=== PATIENT | male | born 1980 | race African-American/Black ===

== ENCOUNTER 2020-04-05 23:47 | Emergency (ER) | payer OTHER ==
[2020-04-05] MEDS ORDERED: KETAMINE HCL 500 MG/10 ML VIAL IM ONE (23:48)
[2020-04-05] MEDS ORDERED: HALOPERIDOL LACTATE 5 MG/ML IM ONE (23:51)
[2020-04-05] MEDS ORDERED: MIDAZOLAM HCL 2 MG/2 ML SINGLE DOSE VIAL IM ONE (23:52)
--- NOTE | 2020-04-05 23:52 | PDOC ---
Attending Attestation - Resident Resident Name: Fabián Perea - ED Attending Attestation I have performed the following: I have examined & evaluated the patient, The case was reviewed & discussed with the resident, I agree w/resident's findings & plan - HPI HPI: 04/06/20 00:42 see resident hpi - Physicial Exam PE: 04/06/20 00:42 see resident exam - Medical Decision Making 04/06/20 00:42 39-year-old male brought in accompanied by police after knocking on random people's doors yelling at staff on arrival with slurred speech, confused Patient sedated due to aggressive behavior and inability to properly evaluate Plan for CT scan of the head, labs including alcohol level and drug screen Will observe in the emergency department pending results Patient did require 10 mg of Haldol and 4 mg of Versed for sedation Pulse oximetry Discharge - Discharge Information Problems reviewed: Yes Clinical Impression/Diagnosis: Altered mental status Condition: Fair - Follow up/Referral - Patient Discharge Instructions - Post Discharge Activity
[2020-04-06 00:03] VITALS: TEMP 97; BMI 24.4
--- NOTE | 2020-04-06 00:11 | PDOC ---
History of Present Illness - General Chief Complaint: Alcohol intoxication Stated Complaint: INTOX Time Seen by Provider: 04/05/20 23:48 History Source: Patient, EMS, Law Enforcement Exam Limitations: Clinical Condition - History of Present Illness Initial Comments: 39 y/o male presenting to [facility] ER via EMS accompanied by Tristian MAURICIO screaming obscenities. PD state the pt wound found wondering the street knocking on random doors. EMS crew state he was in a state of excited delirium. Pt refused to provide any personal information. On arrival, the pt would not provide a complaint, but rather stated Ill spit on you and throw my AIDS blood on you. Pt is not known to this hospital system. Past History - Medical History Allergies/Adverse Reactions: Allergies Allergy/AdvReac Type Severity Reaction Status Date / Time No Known Allergies Allergy Verified 04/06/20 00:03 - Psycho-Social/Smoking History Smoking History: Smoker current status UNK Have you smoked in the past 12 months: No - Substance Abuse Hx (Audit-C & DAST Scrn) How often the patient has a drink containing alcohol: 2-4 times / month Number of drinks the patient has on a typical day: 3 or 4 How often the patient has six or more drinks on one occasion: Less than monthly Score: In Men: 4 or > Positive; In Women: 3 or > Positive: 4 Screen Result (Pos requires Nsg. Audit-10AR): Positive In the last yr the pt used illegal drug/Rx for NonMed reason: No Score: Yes response is considered Positive: 0 Screen Result (Positive result requires Nsg. DAST-10): Negative Review of Systems - Review of Systems Able to Perform ROS?: No Comments:: Pt refused to participate in interview. *Physical Exam - Vital Signs Last Vital Signs Temp Pulse Resp BP Pulse Ox 97 F L 95 H 95 H 136/91 98 04/05/20 23:55 04/05/20 23:55 04/05/20 23:55 04/05/20 23:55 04/05/20 23:55 - Physical Exam Vital signs and nursing notes reviewed. Constitutional- Well-developed, well-nourished adult male in no acute distress but verbally and physically combative. Head- Normocephalic. No obvious external signs of trauma. Eyes- PERRL. Sclerae white. Neck- Supple, trachea is midline. Cardiovascular / Chest- Regular rate and regular rhythm. No murmur, rubs, click s, or gallops. Peripheral pulses- radial pulses full. Respiratory- Breathing unlabored. Speaking in multi-word responses without pausing. Equal chest rise and fall. Clear to auscultation bilaterally. No stridor, no wheezing, no rhonchi. Gastrointestinal- abdomen is soft, non-tender, non-distended. Neuro- Alert but unable to assess orientation. Moving all four extremities spontaneously. No facial asymmetry. No slurred speech. Skin- Warm, dry, and intact. Psych- Affect- emotive. Speech was non-labored, non-pressured. ED Treatment Course - LABORATORY CBC & Chemistry Diagram: 04/06/20 00:20 04/06/20 00:20 - RADIOLOGY Radiology Studies Ordered: Category Date Time Status HEAD CT WITHOUT CONTRAST [CT] Stat CT Scan 04/06/20 00:09 Ordered Radiograph Interpretation: HCT: THIS IS A PRELIMINARY REPORT DATE OF SERVICE: 2020-04-06 01:02:16 IMAGES: 275 EXAM: HEAD CT WITHOUT CONTRAST HISTORY: Altered mental status COMPARISON: None. FINDINGS: Evaluation of the motion artifact, especially around the sinuses and skull base. The ventricular system is midline and nondilated. The sulcal pattern is normal for the patient's age. There is no bleed, mass, extra-axial fluid collection or mass effect. No skull f racture or skull lesion is identified. The visualized paranasal sinuses and mastoid air cells are clear. IMPRESSION: Motion limited exam without evidence of acute pathology. One or more of the following dose reduction techniques were used: automated exposure control, adjustment of the mA and/or kV according to patient size, use of iterative reconstructive technique. THIS DOCUMENT HAS BEEN ELECTRONICALLY SIGNED Chaim Olmos MD 04/06/2020 01:50 EST - Medications Given in the ED: ED Medications Discontinued Medications Generic Name Dose Route Start Last Admin Trade Name Freq PRN Reason Stop Dose Admin Haloperidol 10 mg 04/05/20 23:51 04/06/20 00:04 Haldol Injection (Fast Acting) - IM 04/05/20 23:52 10 mg ONCE ONE Administration Midazolam HCl 4 mg 04/05/20 23:52 04/06/20 00:04 Versed - IM 04/05/20 23:53 4 mg ONCE ONE Administration Medical Decision Making - Medical Decision Making 39 y/o male presenting in an apparent state of combative excited delirium. Afebrile. Vitals unremarkable for significant tachycardia, hypotension, or hypoxia. No obvious signs of trauma. Pt was administered Haldol and Versed with concern for safety of both the pt and members of staff. Pt was then placed on continuous waveform capnography and pulse oximetry. Labs revealed elevated EtOH level. No other concerning electrolyte abnormalities. Mildly elevated CK. Ordered 2L LR IVFB. HCT unremarkable for acute pathology. 06 Apr 2020 06:44 AM Pt reassessed. Found sleeping. Easily arousable. Does not recall the events of last evening. States he only drank a little bit with family. Will attempt to call family to find a ride home. 06 Apr 2020 07:04 AM Pt signed out to ED Attending Dr. Sorenson after he was verbally appraised of the pts HPI, current ED course, and plan of management. Will evaluate further for sobriety. Case discussed with ED Attending Dr. Wong. Fabián Perea M.D., PGY3 Emergency Medicine Residency Discharge - Discharge Information Problems reviewed: Yes Clinical Impression/Diagnosis: Alcohol abuse, Threatening behavior Altered mental status Qualifiers: Altered mental status type: delirium Qualified Code(s): R41.0 - Disorientation, unspecified Condition: Fair - Follow up/Referral Referrals: ON STAFF,NOT [Primary Care Provider] - - Patient Discharge Instructions Patient Printed Discharge Instructions: DI for Alcohol Abuse Additional Instructions: You were seen tonight for erratic behavior while intoxicated. Your labs did not show anything concerning aside from your alcohol level. Your head CT was normal. You need to stop drinking. I have attached a packet of information for you to read. All of todays results are included in this packet. Follow up with your primary care doctor as needed. Return to the ED for new or worsening symptoms. Print Language: UZBEK - Post Discharge Activity
[2020-04-06 00:48] LABS: BASO % 1.3 % (0-2.0); EOS % 9.3 % (0-4.5); HEMATOCRIT 39.1 % (35.4-49); HEMOGLOBIN 13.1 GM/dL (11.7-16.9); LYMPH % 44.3 % (8-40); MCH 30.9 pg (25.7-33.7); MCHC 33.4 g/dl (32.0-35.9); MEAN CELL VOLUME 92.5 fl (80-96); MEAN PLT VOLUME 7.2 fl (7.5-11.1); MONO % 7.4 % (3.8-10.2); NEUT % 37.7 % (42.8-82.8); PLATELET COUNT 266 K/MM3 (134-434); RBC 4.23 M/mm3 (4.00-5.60); RDW 14.6 % (11.9-15.9)
[2020-04-06 01:21] LABS: ALBUMIN 3.8 g/dl (3.4-5.0); ALK PHOS 70 U/L (45-117); ANION GAP 7 MMOL/L (8-16); BILIRUBIN,TOTAL 0.4 mg/dL (0.2-1); BLOOD UREA NITROGEN 8.7 mg/dL (7-18); CALCIUM 8.5 mg/dL (8.5-10.1); CHLORIDE 108 mmol/L (98-107); CO2 27 mmol/L (21-32); CREATININE 0.7 mg/dL (0.55-1.3); GLUCOSE,RANDOM 89 mg/dL (74-106); POTASSIUM 3.2 mmol/L (3.5-5.1); SGOT/AST 99 U/L (15-37); SGPT/ALT 100 U/L (13-61); SODIUM 143 mmol/L (136-145); TOT PROT 8.1 g/dl (6.4-8.2)
[2020-04-06] MEDS ORDERED: LACTATED RINGERS SOLUTION 1000 ML INFUS.BAG IV ONE (03:02)
--- NOTE | 2020-04-06 09:42 | PDOC ---
*Physical Exam - Vital Signs Last Vital Signs Temp Pulse Resp BP Pulse Ox 97 F L 94 H 18 137/85 100 04/05/20 23:55 04/06/20 06:42 04/06/20 06:42 04/06/20 06:42 04/06/20 06:42 - Physical Exam 04/06/20 09:41 pt awake, alert, communicative, follows commands, ambulates with steady gait. will d/c. ED Treatment Course - LABORATORY CBC & Chemistry Diagram: 04/06/20 00:20 04/06/20 00:20 - ADDITIONAL ORDERS Additional order review: Laboratory Results 04/06/20 04/06/20 04/06/20 00:20 00:20 00:16 Sodium 143 Potassium 3.2 L Chloride 108 H Carbon Dioxide 27 Anion Gap 7 L BUN 8.7 Creatinine 0.7 Est GFR (CKD-EPI)AfAm 136.81 Est GFR (CKD-EPI)NonAf 118.04 POC Glucometer 89 Random Glucose 89 Calcium 8.5 Total Bilirubin 0.4 AST 99 H ALT 100 H Alkaline Phosphatase 70 Creatine Kinase 856 H Creatine Kinase Index 0.6 CK-MB (CK-2) 5.9 H Troponin I < 0.02 Total Protein 8.1 Albumin 3.8 Salicylates 3.5 Acetaminophen 2.0 Alcohol, Quantitative 340.4 H 04/06/20 04/06/20 00:20 00:16 RBC 4.23 MCV 92.5 MCHC 33.4 RDW 14.6 MPV 7.2 L Neutrophils % 37.7 L Lymphocytes % 44.3 H Monocytes % 7.4 Eosinophils % 9.3 H Basophils % 1.3 POC Glucometer 89 - Medications Given in the ED: ED Medications Discontinued Medications Generic Name Dose Route Start Last Admin Trade Name Freq PRN Reason Stop Dose Admin Haloperidol 10 mg 04/05/20 23:51 04/06/20 00:04 Haldol Injection (Fast Acting) - IM 04/05/20 23:52 10 mg ONCE ONE Administration Ketamine HCl 500 mg 04/05/20 23:48 04/06/20 00:26 Ketalar - IM 04/05/20 23:49 Not Given ONCE ONE Lactated Ringer's 2,000 ml 04/06/20 03:02 04/06/20 03:20 Lactated Ringers Solution IV 04/06/20 03:03 2,000 ml ONCE ONE Administration Midazolam HCl 4 mg 04/05/20 23:52 04/06/20 00:04 Versed - IM 04/05/20 23:53 4 mg ONCE ONE Administration Discharge - Discharge Information Problems reviewed: Yes Clinical Impression/Diagnosis: Alcohol abuse, Threatening behavior Altered mental status Qualifiers: Altered mental status type: delirium Qualified Code(s): R41.0 - Disorientation, unspecified Condition: Stable Disposition: HOME - Follow up/Referral Referrals: ON STAFF,NOT [Primary Care Provider] - Ismael Rao MD [Staff Physician] - - Patient Discharge Instructions Patient Printed Discharge Instructions: DI for Alcohol Abuse Additional Instructions: You were seen tonight for erratic behavior while intoxicated. Your labs did not show anything concerning aside from your alcohol level. Your head CT was normal. You need to stop drinking. I have attached a packet of information for you to read. All of todays results are included in this packet. Follow up with your primary care doctor as needed. Return to the ED for new or worsening symptoms. Print Language: MACEDONIAN - Post Discharge Activity
[2020-04-06 09:49] VITALS: BP 156/94; PULSE 95
== END 2020-04-06 09:57 | disposition home or self-care (01) ==
LOC: JER 23:47
PROC: 3E023NZ Introduction of Analgesics, Hypnotics, Sedatives into Muscle, Percutaneous Approach (ICD-10-PCS; principal; 2020-04-05)
PROC: 3E023BZ Introduction of Anesthetic Agent into Muscle, Percutaneous Approach (ICD-10-PCS; 2020-04-05)
PROC: 3E033NZ Introduction of Analgesics, Hypnotics, Sedatives into Peripheral Vein, Percutaneous Approach (ICD-10-PCS; 2020-04-05)
DX: R41.82 Altered mental status, unspecified (principal)
CPT/HCPCS: 36415; 70450-TC; 80053; 80307; 82550; 82553; 82962; 84484; 85025; 99285-25